=== PATIENT | male | born 1940 | race Caucasian/White ===

== ENCOUNTER 2019-10-19 13:44 | Inpatient (IN) | payer MEDICARE, OTHER ==
[~2019-10-19] VITALS: Ht 170.2 cm; Wt 68.0 kg
[2019-10-19] MEDS ORDERED: ACET-2154 PO (14:07)
[2019-10-19] MEDS ORDERED: TRAZ-182 PO (14:07)
[2019-10-19] MEDS ORDERED: LOSA50TA39 PO (14:07)
[2019-10-19] MEDS ORDERED: TAB A VITE PO (14:07)
[2019-10-19] MEDS ORDERED: LORA-258 PO (14:07)
[2019-10-19] MEDS ORDERED: NUTR113P PO (14:07)
[2019-10-19 14:31] LABS: *BILIRUBIN,URIN NEGATIVE (NEGATIVE); *BLOOD, URINE NEGATIVE (NEGATIVE); *CLARITY,URINE CLEAR (CLEAR); *COLOR,URINE YELLOW (YELLOW); *KETONES,URINE NEGATIVE (NEGATIVE); *UROBILINOGEN,URINE 0.2 E.U./dl (NORMAL); LEUKOCYTE ESTERASE ,URINE NEGATIVE (NEGATIVE); NITRITE, URINE NEGATIVE (NEGATIVE); UGLUCOSE NEGATIVE (NEGATIVE)
[2019-10-19 14:38] LABS: *AMPHETAMINE, URINE NEGATIVE (NEGATIVE); *BARBITURATE, URINE NEGATIVE (NEGATIVE); *CANNABINOID, URINE NEGATIVE (NEGATIVE); *COCCAINE, URINE NEGATIVE (NEGATIVE); *OPIATE, URINE NEGATIVE (NEGATIVE); *PHENCYCLIDINE SCREEN,URINE NEGATIVE (NEGATIVE)
[2019-10-19 14:39] LABS: BASOPHILS # (AUTO) 0.1 K/uL (0.0-8.0); BASOPHILS % (AUTO) 1.2 % (0.0-2.0); EOSINOPHILS # (AUTO) 0.3 K/uL (0.0-0.7); EOSINOPHILS % (AUTO) 5.6 % (0.0-7.0); HEMATOCRIT 38.3 % (36.7-47.1); HEMOGLOBIN 12.9 g/dL (12.5-16.3); LYMPHOCYTES # (AUTO) 1.6 K/uL (20.0-40.0); LYMPHOCYTES % (AUTO) 33.2 % (20.5-51.5); MEAN CORPUSCULAR HEMOGLOBIN 28.8 uug (23.8-33.4); MEAN CORPUSCULAR HGB CONC 34 g/dL (32.5-36.3); MEAN CORPUSCULAR VOLUME 85.5 fL (73.0-96.2); MONOCYTES # (AUTO) 0.4 K/uL (2.0-10.0); MONOCYTES % (AUTO) 8.2 % (0.0-11.0); NEUTROPHILS # (AUTO) 2.5 K/uL (1.8-8.9); NEUTROPHILS % (AUTO) 51.8 % (38.5-71.5); PLATELET COUNT (AUTO) 208 K/uL (152-348); RED BLOOD CELL COUNT(AUTO) 4.48 MIL/uL (4.06-5.63); WHITE BLOOD COUNT (AUTO) 4.8 K/uL (3.6-10.2)
[2019-10-19 14:54] LABS: CARBON DIOXIDE 26 mmol/L (21-32); CHLORIDE 97 mmol/L (98-107); CREATININE 0.7 mg/dL (0.6-1.3); GLUCOSE 109 mg/dL (74-106); POTASSIUM 4.2 mmol/L (3.5-5.1); UREA NITROGEN, BLOOD 11 mg/dL (7-18)
[2019-10-19 14:59] LABS: ALANINE AMINOTRANSFERASE 21 U/L (16-63); ALKALINE PHOSPHATASE 95 U/L (50-136); ASPARTATE AMINOTRANSFERASE 27 U/L (15-37); BILIRUBIN,DIRECT 0.2 mg/dL (0.0-0.2); BILIRUBIN,TOTAL 0.5 mg/dL (0.2-1.0); TOTAL PROTEIN, SERUM 6.8 g/dL (6.4-8.2)
[2019-10-19 15:01] LABS: THYROID STIMULATING HORMONE 1.996 mIU/mL (0.358-3.740)
[2019-10-19 15:05] LABS: ETHANOL < 3 MG/DL (0-0)
[2019-10-19] MEDS ORDERED: levoFLOXacin 750 MG/D5W 150 ML PIGGYBACK IV ONE (15:15)
[2019-10-19] MEDS ORDERED: levoFLOXacin 750 MG TABLET PO ONE (15:30)
[2019-10-19] MEDS ORDERED: levoFLOXacin 750 MG TABLET ONE (15:33)
[2019-10-19 20:00] VITALS: BP 152/84
[2019-10-19] MEDS ORDERED: HALOPERIDOL LACTATE 5 MG/1 ML VIAL IM ONE (20:15)
[2019-10-19] MEDS ORDERED: LORAZEPAM 2 MG/1 ML VIAL IM ONE (20:15)
[2019-10-19] MEDS ORDERED: diphenhydrAMINE 50 MG/1 ML VIAL IM ONE (20:15)
[2019-10-19 22:11] VITALS: BP 129/82
[2019-10-20 07:30] VITALS: BP 124/89
[2019-10-20] MEDS ORDERED: MAGNESIUM HYDROXIDE 30 ML LIQUID UDC PO PRN (07:30)
[2019-10-20] MEDS ORDERED: ACETAMINOPHEN 325 MG TABLET PO PRN ×2 (07:30→11:30)
[2019-10-20] MEDS ORDERED: MAG HYDROX/AL HYDROX/SIMETH 30 ML LIQUID UDC PO PRN (07:30)
[2019-10-20 16:00] VITALS: BP_SYST 123; BP_SYST 131; BP_DIAS 70; BP_DIAS 81
[2019-10-20 20:22] VITALS: BP 124/70
[2019-10-20] MEDS: RIVASTIGMINE TARTRATE 1.5 MG CAPSULE PO SCH (20:58)
[2019-10-20] MEDS: DIVALPROEX 250 MG TABLET.DR PO SCH (20:58)
[2019-10-20] MEDS: LORAZEPAM 1 MG TABLET PO PRN (21:45)
[2019-10-21] MEDS: TEMAZEPAM 7.5 MG CAPSULE PO PRN (00:50)
[2019-10-21 07:30] VITALS: BP 134/69
[2019-10-21 07:57] LABS: CREATININE 0.9 mg/dL (0.6-1.3); PHOSPHOROUS 3.7 mg/dL (2.5-4.9); POTASSIUM 4.2 mmol/L (3.5-5.1); URIC ACID 3.5 mg/dL (3.5-7.2)
[2019-10-21 08:01] LABS: THYROID STIMULATING HORMONE 4.773 mIU/mL (0.358-3.740)
[2019-10-21] MEDS: LOSARTAN POTASSIUM 50 MG TABLET PO SCH (08:26)
[2019-10-21] MEDS: MULTIVITAMINS,THERAPEUTIC TABLET PO SCH (08:26)
[2019-10-21] MEDS: DIVALPROEX 250 MG TABLET.DR PO SCH ×2 (08:26→20:02)
[2019-10-21] MEDS: RIVASTIGMINE TARTRATE 1.5 MG CAPSULE PO SCH ×2 (08:26→20:02)
[2019-10-21] MEDS: ENSURE CLEAR 240 ML LIQUID (MIX BERRY) PO SCH (08:27)
[2019-10-21] MEDS: LORAZEPAM 1 MG TABLET PO PRN (12:58)
[2019-10-21 16:00] VITALS: BP 97/60
[2019-10-21 20:22] VITALS: BP 118/62
[2019-10-22 07:30] VITALS: BP 149/80
[2019-10-22] MEDS: DIVALPROEX 250 MG TABLET.DR PO SCH ×2 (08:36→20:23)
[2019-10-22] MEDS: RIVASTIGMINE TARTRATE 1.5 MG CAPSULE PO SCH ×2 (08:36→20:23)
[2019-10-22] MEDS: LOSARTAN POTASSIUM 50 MG TABLET PO SCH (08:36)
[2019-10-22] MEDS: MULTIVITAMINS,THERAPEUTIC TABLET PO SCH (08:36)
[2019-10-22] MEDS: ENSURE CLEAR 240 ML LIQUID (MIX BERRY) PO SCH (08:37)
[2019-10-22 10:36] LABS: CREATININE 0.7 mg/dL (0.6-1.3); POTASSIUM 4.1 mmol/L (3.5-5.1)
[2019-10-22 16:00] VITALS: BP 125/74
[2019-10-22] MEDS: LORAZEPAM 1 MG TABLET PO PRN (17:23)
[2019-10-22 20:00] VITALS: BP 121/67
[2019-10-22] MEDS: TEMAZEPAM 7.5 MG CAPSULE PO PRN (22:03)
[2019-10-23 07:30] VITALS: BP 131/76
[2019-10-23] MEDS: MULTIVITAMINS,THERAPEUTIC TABLET PO SCH (09:26)
[2019-10-23] MEDS: DIVALPROEX 250 MG TABLET.DR PO SCH ×2 (09:26→20:06)
[2019-10-23] MEDS: RIVASTIGMINE TARTRATE 1.5 MG CAPSULE PO SCH ×2 (09:26→20:06)
[2019-10-23] MEDS: LOSARTAN POTASSIUM 50 MG TABLET PO SCH (09:27)
[2019-10-23] MEDS: ENSURE CLEAR 240 ML LIQUID (MIX BERRY) PO SCH (09:28)
[2019-10-23 16:00] VITALS: BP 116/68
[2019-10-23 20:38] VITALS: BP 136/80
[2019-10-24 07:30] VITALS: BP 116/72
[2019-10-24] MEDS: DIVALPROEX 250 MG TABLET.DR PO SCH ×2 (08:17→20:51)
[2019-10-24] MEDS: RIVASTIGMINE TARTRATE 1.5 MG CAPSULE PO SCH ×2 (08:17→20:51)
[2019-10-24] MEDS: MULTIVITAMINS,THERAPEUTIC TABLET PO SCH (08:18)
[2019-10-24] MEDS: LOSARTAN POTASSIUM 50 MG TABLET PO SCH (08:18)
[2019-10-24] MEDS: ENSURE CLEAR 240 ML LIQUID (MIX BERRY) PO SCH (08:18)
[2019-10-24] MEDS: LORAZEPAM 1 MG TABLET PO PRN ×2 (08:30→13:52)
[2019-10-24 16:00] VITALS: BP 99/62
[2019-10-24 20:18] VITALS: BP 127/72
[2019-10-25 07:30] VITALS: BP 135/71
[2019-10-25] MEDS: MULTIVITAMINS,THERAPEUTIC TABLET PO SCH (09:09)
[2019-10-25] MEDS: RIVASTIGMINE TARTRATE 1.5 MG CAPSULE PO SCH ×2 (09:10→20:52)
[2019-10-25] MEDS: DIVALPROEX 250 MG TABLET.DR PO SCH ×2 (09:10→20:52)
[2019-10-25] MEDS: LOSARTAN POTASSIUM 50 MG TABLET PO SCH (09:10)
[2019-10-25] MEDS: ENSURE CLEAR 240 ML LIQUID (MIX BERRY) PO SCH (09:12)
[2019-10-25] MEDS: risperiDONE 0.5 MG TABLET PO SCH ×2 (11:20→20:52)
[2019-10-25 16:00] VITALS: BP 103/53
[2019-10-25 20:00] VITALS: BP 116/63
[2019-10-26 07:30] VITALS: BP 130/82
[2019-10-26] MEDS: DIVALPROEX 250 MG TABLET.DR PO SCH ×2 (08:25→20:15)
[2019-10-26] MEDS: RIVASTIGMINE TARTRATE 1.5 MG CAPSULE PO SCH ×2 (08:26→20:15)
[2019-10-26] MEDS: LOSARTAN POTASSIUM 50 MG TABLET PO SCH (08:26)
[2019-10-26] MEDS: risperiDONE 0.5 MG TABLET PO SCH ×2 (08:26→20:15)
[2019-10-26] MEDS: MULTIVITAMINS,THERAPEUTIC TABLET PO SCH (08:26)
[2019-10-26] MEDS: ENSURE CLEAR 240 ML LIQUID (MIX BERRY) PO SCH (08:27)
[2019-10-26 16:02] VITALS: BP 129/69
[2019-10-26 20:00] VITALS: BP 121/73
[2019-10-26] MEDS: LORAZEPAM 1 MG TABLET PO PRN (20:15)
[2019-10-26] MEDS: TEMAZEPAM 7.5 MG CAPSULE PO PRN (23:06)
[2019-10-27 07:30] VITALS: BP 132/80
[2019-10-27] MEDS: DIVALPROEX 250 MG TABLET.DR PO SCH ×2 (08:44→20:36)
[2019-10-27] MEDS: LOSARTAN POTASSIUM 50 MG TABLET PO SCH (08:44)
[2019-10-27] MEDS: risperiDONE 0.5 MG TABLET PO SCH ×2 (08:44→20:35)
[2019-10-27] MEDS: RIVASTIGMINE TARTRATE 1.5 MG CAPSULE PO SCH ×2 (08:44→20:36)
[2019-10-27] MEDS: MULTIVITAMINS,THERAPEUTIC TABLET PO SCH (08:44)
[2019-10-27] MEDS: ENSURE CLEAR 240 ML LIQUID (MIX BERRY) PO SCH (08:49)
[2019-10-27 16:00] VITALS: BP 97/57
[2019-10-27] MEDS: LORAZEPAM 1 MG TABLET PO PRN (20:27)
[2019-10-27 20:38] VITALS: BP 108/62
[2019-10-28] MEDS: TEMAZEPAM 7.5 MG CAPSULE PO PRN ×2 (00:25→22:56)
[2019-10-28 07:30] VITALS: BP 124/73
[2019-10-28] MEDS: ENSURE CLEAR 240 ML LIQUID (MIX BERRY) PO SCH (09:07)
[2019-10-28] MEDS: DIVALPROEX 250 MG TABLET.DR PO SCH ×2 (09:07→20:27)
[2019-10-28] MEDS: MULTIVITAMINS,THERAPEUTIC TABLET PO SCH (09:07)
[2019-10-28] MEDS: RIVASTIGMINE TARTRATE 1.5 MG CAPSULE PO SCH ×2 (09:07→20:27)
[2019-10-28] MEDS: risperiDONE 0.5 MG TABLET PO SCH ×2 (09:07→20:27)
[2019-10-28] MEDS: LOSARTAN POTASSIUM 50 MG TABLET PO SCH (09:08)
[2019-10-28 15:23] VITALS: BP 90/49
[2019-10-28] MEDS: LORAZEPAM 1 MG TABLET PO PRN (19:29)
[2019-10-28 20:44] VITALS: BP 96/56
[2019-10-29 07:30] VITALS: BP 107/63
[2019-10-29] MEDS: risperiDONE 0.5 MG TABLET PO SCH (08:47)
[2019-10-29] MEDS: RIVASTIGMINE TARTRATE 1.5 MG CAPSULE PO SCH (08:47)
[2019-10-29] MEDS: DIVALPROEX 250 MG TABLET.DR PO SCH (08:47)
[2019-10-29] MEDS: MULTIVITAMINS,THERAPEUTIC TABLET PO SCH (08:47)
[2019-10-29 08:49] VITALS: BP 107/63
[2019-10-29] MEDS: LOSARTAN POTASSIUM 50 MG TABLET PO SCH (08:49)
[2019-10-29] MEDS: ENSURE CLEAR 240 ML LIQUID (MIX BERRY) PO SCH (08:49)
== END 2019-10-29 15:00 | disposition short-term general hospital (02) | DRG 885 ==
LOC: ER 13:44 → GPS 19:33
PROVIDERS: ADMIT Psychiatry & Neurology Psychiatry; ATTEND Registered Nurse
DX: F39 Unspecified mood [affective] disorder (principal); I11.0 Hypertensive heart disease with heart failure; J18.9 Pneumonia, unspecified organism; E87.1 Hypo-osmolality and hyponatremia; D68.69 Other thrombophilia; F03.91 Unspecified dementia, unspecified severity, with behavioral disturbance; I50.32 Chronic diastolic (congestive) heart failure; Z91.81 History of falling; E66.01 Morbid (severe) obesity due to excess calories; E86.1 Hypovolemia; F29 Unspecified psychosis not due to a substance or known physiological condition; Z73.6 Limitation of activities due to disability; E02 Subclinical iodine-deficiency hypothyroidism
CPT/HCPCS: 36415; 70030-TC; 71045; 80307; 83735; 84100; 84300; 84443; 84550; 85025; 85730; 87086; 93005; G0480; J1200; J1630; J2060; J3490

== ENCOUNTER 2019-10-29 14:55 | Inpatient (IN) | payer MEDICARE, OTHER ==
[~2019-10-29] VITALS: Ht 157.5 cm; Wt 64.9 kg
[~2019-10-29 14:55] MED LIST: ACET-2154 PO; LORA-258 PO; LOSA50TA39 PO; NUTR113P PO; TAB A VITE PO; TRAZ-182 PO
[2019-10-29 15:31] LABS: BASOPHILS % (AUTO) 0.8 % (0.0-2.0); EOSINOPHILS # (AUTO) 0.2 K/uL (0.0-0.7); EOSINOPHILS % (AUTO) 3.7 % (0.0-7.0); HEMATOCRIT 35.7 % (36.7-47.1); HEMOGLOBIN 12.2 g/dL (12.5-16.3); LYMPHOCYTES # (AUTO) 1.7 K/uL (20.0-40.0); LYMPHOCYTES % (AUTO) 30.3 % (20.5-51.5); MEAN CORPUSCULAR HEMOGLOBIN 29.2 uug (23.8-33.4); MEAN CORPUSCULAR HGB CONC 34 g/dL (32.5-36.3); MEAN CORPUSCULAR VOLUME 85.5 fL (73.0-96.2); MONOCYTES # (AUTO) 0.5 K/uL (2.0-10.0); MONOCYTES % (AUTO) 9.2 % (0.0-11.0); NEUTROPHILS # (AUTO) 3.2 K/uL (1.8-8.9); PLATELET COUNT (AUTO) 182 K/uL (152-348); RED BLOOD CELL COUNT(AUTO) 4.17 MIL/uL (4.06-5.63); WHITE BLOOD COUNT (AUTO) 5.7 K/uL (3.6-10.2)
--- NOTE | 2019-10-29 15:34 | NUR ---
PT IS IN ROOM #2A. DR HILTON EVALUATED THE PT.
[2019-10-29 15:42] LABS: POTASSIUM 4.4 mmol/L (3.5-5.1)
[2019-10-29 15:48] LABS: BILIRUBIN,DIRECT 0.1 mg/dL (0.0-0.2); BILIRUBIN,TOTAL 0.3 mg/dL (0.2-1.0); TOTAL PROTEIN, SERUM 6.5 g/dL (6.4-8.2)
--- NOTE | 2019-10-29 18:16 | NUR ---
TELEMETRY FLOOR DOES NOT HAVE ENOUGH RNs TO ACCEPT THE PT. PT IS GOING TO BE ADMITTED AFTER CHANGE OF THE SHIFTS.
[2019-10-29] MEDS ORDERED: HALOPERIDOL LACTATE 5 MG/1 ML VIAL IV ONE (18:45)
[2019-10-29] MEDS ORDERED: HALOPERIDOL LACTATE 5 MG/1 ML VIAL ONE (18:52)
--- NOTE | 2019-10-29 19:00 | NUR ---
REPORT WAS GIVEN TO [employer]ER RN.
--- NOTE | 2019-10-29 19:12 | NUR ---
Patient noted resting bed, no behaviors noted at this time
--- NOTE | 2019-10-29 20:10 | NUR ---
Pt. admitted to [facility] , under care of Dr. Ralph Galvez Belongs List completed and all belongings sent with patient, no distress noted, patient able to ambulate independently from [facility] to hospital bed, transferred to [facility] and endorsed to Mackenzie GOULD
[2019-10-29 20:15] VITALS: BP 120/69
--- NOTE | 2019-10-29 21:00 | NUR ---
Pt. admitted to Telemetry, psychosis and hypotension under care of Dr. Mckinnon. Belongs List completed. Patient arrived on the unit at 2013 via [place], received report from Roxanna Hill RN. Patient is AxOx 2-3, irish speaking. Patient in no acute distress at time of arrival. VSS. Skin assessment completed. pvc monitor placed, SR. Safety precautions in place, patient is a high fall risk.
[2019-10-30] VITALS: BP 108/58
[2019-10-30] MEDS ORDERED: LORAZEPAM 1 MG TABLET PO PRN ×2 (00:15→12:45)
[2019-10-30] MEDS ORDERED: TEMAZEPAM 7.5 MG CAPSULE PO PRN ×2 (00:15→12:45)
[2019-10-30] MEDS ORDERED: MAGNESIUM HYDROXIDE 30 ML LIQUID UDC PO PRN (00:15)
[2019-10-30] MEDS ORDERED: MAG HYDROX/AL HYDROX/SIMETH 30 ML LIQUID UDC PO PRN (00:15)
[2019-10-30 04:00] VITALS: BP 113/68
--- NOTE | 2019-10-30 06:46 | NUR ---
Patient slept through the night. Patient tried to get up multiple times, needs constant reorientation, has a sitter. No other significant events reported. No signs of distress noted, No SOB noted. Vitals signs WNL. All needs attended to. Safety measure in place. Will endorse report to oncoming nurse.
[2019-10-30] MEDS ORDERED: ONDANSETRON 4 MG/2 ML VIAL IV PRN (07:45)
[2019-10-30] MEDS ORDERED: ACETAMINOPHEN 325 MG TABLET PO PRN (07:45)
[2019-10-30 08:00] VITALS: BP 128/78
--- NOTE | 2019-10-30 08:00 | NUR ---
RESTING IN BED COMFORTABLY WITH NO SS OF PAIN/SOB, 1:1 SITTER AT BEDSIDE. REMAINS SR ON MONITOR
[2019-10-30] MEDS: RIVASTIGMINE TARTRATE 1.5 MG CAPSULE PO SCH ×2 (08:10→21:56)
[2019-10-30] MEDS: DIVALPROEX 250 MG TABLET.DR PO SCH ×2 (08:10→21:56)
[2019-10-30] MEDS: MULTIVITAMINS,THERAPEUTIC TABLET PO SCH (08:10)
[2019-10-30] MEDS: ENSURE CLEAR 240 ML LIQUID (MIX BERRY) PO SCH (08:11)
[2019-10-30] MEDS ORDERED: risperiDONE 0.5 MG TABLET PO SCH (09:00)
[2019-10-30 10:00] VITALS: BP_SYST 114; BP_SYST 120; BP_SYST 123; BP_DIAS 65; BP_DIAS 66; BP_DIAS 70
[2019-10-30] MEDS: IV NS 1000 ML 1,000 ML IV PRN (10:14)
--- NOTE | 2019-10-30 10:47 | NUR ---
DISCHARGE PLAN: Patient currently resides at [facility] [address] [place] [address] ([phone]). Patient's daughter Maria C ([phone]) is involved with pts care and would like patient to return to his assisted living facility upon discharge.
--- NOTE | 2019-10-30 12:43 | NUR ---
EDGARDO ARRIAGA NOTIFIED OF PSYCH MEDS WITH ORDER AND CARRIED. PATIENT REMAINS CALM AND PARTICIPATES WELL IN ALL AREAS OF ADLS. SR ON MONITOR
--- NOTE | 2019-10-30 16:36 | NUR ---
NO ANXIETY OR SIGNS OF AGITATION. CONTINUE WITH 1:1 SITTER FOR SAFETY
[2019-10-30 21:06] VITALS: BP 141/78
[2019-10-30] MEDS: risperiDONE 0.5 MG TABLET PO SCH (21:56)
[2019-10-30] MEDS: DOCUSATE SODIUM 100 MG CAPSULE PO SCH (21:57)
--- NOTE | 2019-10-30 22:00 | NUR ---
Received pt laying in bed.No signs and symptoms of distress, SOB, or agitation noted. Patient is calm and cooperative. Patient is is Axox3, Arabic speaking. Vitals WNL. Skin is intact. will continue to monitor.
[2019-10-31 00:35] VITALS: BP 148/80
[2019-10-31 04:52] VITALS: BP 147/79
[2019-10-31] MEDS: IV NS 1000 ML 1,000 ML IV PRN (05:48)
[2019-10-31] MEDS: PANTOPRAZOLE SODIUM 40 MG TABLET.DR PO SCH (06:06)
[2019-10-31 06:12] LABS: BASOPHILS # (AUTO) 0.1 K/uL (0.0-8.0); BASOPHILS % (AUTO) 1.2 % (0.0-2.0); EOSINOPHILS # (AUTO) 0.3 K/uL (0.0-0.7); EOSINOPHILS % (AUTO) 4.6 % (0.0-7.0); HEMATOCRIT 39.1 % (36.7-47.1); HEMOGLOBIN 13.2 g/dL (12.5-16.3); LYMPHOCYTES # (AUTO) 1.7 K/uL (20.0-40.0); LYMPHOCYTES % (AUTO) 30.5 % (20.5-51.5); MEAN CORPUSCULAR HEMOGLOBIN 29.2 uug (23.8-33.4); MEAN CORPUSCULAR HGB CONC 34 g/dL (32.5-36.3); MEAN CORPUSCULAR VOLUME 86.8 fL (73.0-96.2); MONOCYTES # (AUTO) 0.6 K/uL (2.0-10.0); MONOCYTES % (AUTO) 11.2 % (0.0-11.0); NEUTROPHILS % (AUTO) 52.5 % (38.5-71.5); PLATELET COUNT (AUTO) 193 K/uL (152-348); WHITE BLOOD COUNT (AUTO) 5.7 K/uL (3.6-10.2)
[2019-10-31 06:15] LABS: CREATININE 0.8 mg/dL (0.6-1.3); POTASSIUM 4.2 mmol/L (3.5-5.1)
--- NOTE | 2019-10-31 06:35 | NUR ---
Patient slept through the night. Patient tried to get up multiple times, needs constant. No other significant events reported. No signs of distress noted, No SOB noted.running Ns @80 cc/hr. Vitals signs WNL. All needs attended to. Safety measure in place. Will endorse report to oncoming nurse.
--- NOTE | 2019-10-31 07:30 | NUR ---
AWAKE ALERT AND ABLE TO VERBALIZE NEEDS, INCOHERENT AT TIMES AND CONFUSED BUT ABLETO FOLLOW COMMAND. CLOSELY MONITORED FOR SAFETY.
--- NOTE | 2019-10-31 08:00 | NUR ---
SEEN BY DR SANTOS SEE NOTES
[2019-10-31] MEDS: DIVALPROEX 250 MG TABLET.DR PO SCH ×2 (08:05→20:50)
[2019-10-31] MEDS: risperiDONE 0.5 MG TABLET PO SCH ×2 (08:05→20:50)
[2019-10-31] MEDS: MULTIVITAMINS,THERAPEUTIC TABLET PO SCH (08:05)
[2019-10-31] MEDS: RIVASTIGMINE TARTRATE 1.5 MG CAPSULE PO SCH ×2 (08:05→20:50)
[2019-10-31] MEDS: ENSURE CLEAR 240 ML LIQUID (MIX BERRY) PO SCH (08:31)
--- NOTE | 2019-10-31 11:01 | NUR ---
DR LEUNG IN WITH ORDER TO CHANGE PATIENT STATUS TO [facility]
[2019-10-31 12:00] VITALS: BP 108/64
--- NOTE | 2019-10-31 15:15 | NUR ---
STILL WITH ON AND OFF MID TO MODERATE ABDOMINAL PAIN TRIED TO OFFER NORCO PO BUT REFUSED. TOLERATING CLEAR LIQUID Addendum: 10/31/19 at 1517 by XIMENA HAND RN ERROR
--- NOTE | 2019-10-31 15:19 | NUR ---
PATIENT IS UP AND WALKING MOST OF THE TIME, GAIT SOMEWHAT UNSTEADY. CLOSELY SUPERVISED FOR SAFETY
[2019-10-31 15:56] VITALS: BP 120/65
--- NOTE | 2019-10-31 19:00 | NUR ---
Pt received sitting comfortably in chair outside his room. Pt has no s/s of acute distress or pain. V/S stable on room air. IV on LFA is intact. Safety measures in place. Will continue with the plan of care.
[2019-10-31 20:17] VITALS: BP 127/76
[2019-10-31] MEDS: DOCUSATE SODIUM 100 MG CAPSULE PO SCH (20:50)
[2019-11-01 04:53] VITALS: BP 141/80
[2019-11-01] MEDS: PANTOPRAZOLE SODIUM 40 MG TABLET.DR PO SCH (06:12)
--- NOTE | 2019-11-01 06:40 | NUR ---
Pt slept through the night. Pt is awake and has no s/s of acute distress. Pt had no episode of syncope or hypotension on my shift. Pt is cooperative. Comfort care and needs attended. Fall precaution maintained. V/S stable on room air. Afebrile. Safety measures in place. Bed low and locked in position. Call light within reach. Will endorse to the oncoming nurse accordingly.
[2019-11-01 06:45] LABS: CREATININE 0.8 mg/dL (0.6-1.3); POTASSIUM 4.1 mmol/L (3.5-5.1)
[2019-11-01 06:46] LABS: BASOPHILS % (AUTO) 0.5 % (0.0-2.0); EOSINOPHILS # (AUTO) 0.2 K/uL (0.0-0.7); EOSINOPHILS % (AUTO) 2.8 % (0.0-7.0); HEMATOCRIT 37.8 % (36.7-47.1); HEMOGLOBIN 12.9 g/dL (12.5-16.3); LYMPHOCYTES # (AUTO) 1.6 K/uL (20.0-40.0); LYMPHOCYTES % (AUTO) 22.3 % (20.5-51.5); MEAN CORPUSCULAR HEMOGLOBIN 29.2 uug (23.8-33.4); MEAN CORPUSCULAR HGB CONC 34 g/dL (32.5-36.3); MEAN CORPUSCULAR VOLUME 85.9 fL (73.0-96.2); MONOCYTES # (AUTO) 0.7 K/uL (2.0-10.0); MONOCYTES % (AUTO) 10.1 % (0.0-11.0); NEUTROPHILS # (AUTO) 4.5 K/uL (1.8-8.9); NEUTROPHILS % (AUTO) 64.3 % (38.5-71.5); PLATELET COUNT (AUTO) 190 K/uL (152-348)
[2019-11-01] MEDS ORDERED: RISP0.5T5 PO (07:30)
[2019-11-01] MEDS ORDERED: DIVA250T4 PO (07:30)
[2019-11-01] MEDS ORDERED: LOSA25TA27 PO (07:30)
[2019-11-01] MEDS ORDERED: Rivastigmine Tartrate PO (07:30)
[2019-11-01] MEDS: ENSURE CLEAR 240 ML LIQUID (MIX BERRY) PO SCH (07:51)
[2019-11-01] MEDS: MULTIVITAMINS,THERAPEUTIC TABLET PO SCH (07:51)
[2019-11-01] MEDS: DIVALPROEX 250 MG TABLET.DR PO SCH (07:51)
[2019-11-01] MEDS: risperiDONE 0.5 MG TABLET PO SCH (07:51)
[2019-11-01] MEDS: RIVASTIGMINE TARTRATE 1.5 MG CAPSULE PO SCH (07:51)
[2019-11-01 11:07] VITALS: BP 116/73
--- NOTE | 2019-11-01 13:07 | NUR ---
dc orders received noted and carried out,dc instruction and rn report given to the alf rn seema garcialock per md orders,pt left the facility via ambulances in stable condition
== END 2019-11-01 13:05 | DRG 640 ==
LOC: ER 14:55 → TELE3 20:03 → MEDSURG3 10-31 11:05
PROVIDERS: ADMIT Internal Medicine; ATTEND Family Medicine
DX: E86.0 Dehydration (principal); N17.0 Acute kidney failure with tubular necrosis; D68.69 Other thrombophilia; F23 Brief psychotic disorder; F03.91 Unspecified dementia, unspecified severity, with behavioral disturbance; R00.1 Bradycardia, unspecified; E87.1 Hypo-osmolality and hyponatremia; I95.9 Hypotension, unspecified; D64.9 Anemia, unspecified; F39 Unspecified mood [affective] disorder; I11.0 Hypertensive heart disease with heart failure; I50.9 Heart failure, unspecified; F29 Unspecified psychosis not due to a substance or known physiological condition; Z73.6 Limitation of activities due to disability; E02 Subclinical iodine-deficiency hypothyroidism; E86.1 Hypovolemia
CPT/HCPCS: 36415; 70030-TC; 70450; 71045; 85025; 85730; 93005; 93307; 93880; A4663; G0378; J1630; J3490; J7030